=== PATIENT | male | born 1955 | race Caucasian/White ===

== ENCOUNTER 2022-02-05 13:12 | Emergency (ER) | payer BC ==
[2022-02-05] MEDS ORDERED: HYDROCODONE/APAP 10/325 TAB ONE (13:50)
[2022-02-05] MEDS ORDERED: KETOROLAC 30 MG/ML INJ ONE (13:51)
--- NOTE | 2022-02-05 15:17 | RAD REPORT ---
EXAM DESCRIPTION: RAD - Lumbar Spine 3 Views - 02/05/2022 2:49 pm CLINICAL HISTORY: PAIN COMPARISON: Sacrum And Coccyx dated 02/05/2022 FINDINGS: A three-view lumbar spine examination was performed. There is a mild left convex scoliotic curvature present. [place] is at L3. The lowest lumbar level is pa rtially sacralized on the left. There is slight left lateral subluxation of L4. Slight height loss no [place] in the right lateral aspect of L3 due to the concave curvature. There is a very slight anterior s ubluxation of L4 on L5. An acute compression fracture is not suspected. . No pathologic bone changes seen. Endplate spurs are seen from L2-S1. Disc space narrowing is present in the lowest movable disc level of the lumbar spine. Facet joint degenerative changes are present. No pars defects identified. IMPRESSION: Lumbar spine degenerative changes are present as detailed. No acute compression fracture or acute finding seen. Concerns for disc herniation, central canal abnormality or occult bone process can be addressed with follow-up outpatient MRI imaging.
--- NOTE | 2022-02-05 15:18 | RAD REPORT ---
EXAM DESCRIPTION: RAD - Sacrum And Coccyx - 02/05/2022 2:49 pm CLINICAL HISTORY: PAIN COMPARISON: Lumbar Spine 3 Views dated 02/05/2022 FINDINGS: No fracture or acute finding of the sacrum or coccygeal segments. No acute or suspicious S I joint finding. Lowest lumbar level is partially sacralized on the left. Lumbar spine findings are d etailed in separate report. No presacral soft tissue thickening. IMPRESSION: No acute sacrum or coccyx finding.
--- NOTE | 2022-02-05 15:24 | EDPHYS ---
Physician Documentation [facility] Name: Gaurav Correa Age: 67 yrs Sex: Male : 1955 Arrival Date: 02/05/2022 Time: 13:15 Bed 20 Private MD: ED Physician Lawson Baez HPI: 02/05 19:40 This 67 yrs old Male presents to ER via Wheelchair with complaints of Back Pain, Back kb Injury. 19:40 The patient presents with pain that is acute. The symptoms are located in the sacrum kb and L5 and L4 and right low back. Onset: The symptoms/episode began/occurred just prior to arrival. The pain does not radiate. Associated signs and symptoms: The patient has no apparent associated signs or symptoms. The problem was sustained may have twisted when trying to sit on a chair. Modifying factors: The patient symptoms are alleviated by nothing, the patient symptoms are aggravated by any movement. Severity of symptoms: At their worst the symptoms were moderate, in the emergency department the symptoms are unchanged. The patient has not experienced similar symptoms in the past. The patient has not recently seen a physician. Historical: - Allergies: 13:30 No Known Allergies; hb - Immunization history:: Adult Immunizations up to date. - Social history:: Smoking status: Patient denies any tobacco usage or history of. ROS: 19:38 Constitutional: Negative for fever, chills, and weight loss. kb 19:38 Back: Positive for pain at rest, pain with movement, of the right low back. 19:38 All other systems are negative. Exam: 19:38 Constitutional: This is a well developed, well nourished patient who is awake, alert, kb and in no acute distress. Head/Face: Normocephalic, atraumatic. ENT: Moist Mucous membranes Cardiovascular: Regular rate and rhythm with a normal S1 and S2. No gallops, murmurs, or rubs. No pulse deficits. Respiratory: Respirations even and unlabored. No increased work of breathing. Talking in full sentences Skin: Warm, dry with normal turgor. Normal color. MS/ Extremity: Pulses equal, no cyanosis. Neurovascular intact. Full, normal range of motion. Neuro: Awake and alert, GCS 15, oriented to person, place, time, and situation. Moves all extremities. Normal gait. Psych: Awake, alert, with orientation to person, place and time. Behavior, mood, and affect are within normal limits. 19:38 Back: vertebral tenderness, is appreciated at L4, L5 and sacrum. 19:38 Neuro: Exam negative for acute changes. Vital Signs: 13:28 Pulse 72; Resp 20; Temp 98.3; Pulse Ox 97% on R/A; Weight 149.69 kg; Height 6 ft. 1 in. hb (185.42 cm); Pain 9/10; 15:05 BP 144 / 75; Pulse 64; Resp 18; Pulse Ox 98% ; em6 13:28 Body Mass Index 43.54 (149.69 kg, 185.42 cm) hb MDM: 13:34 Patient medically screened. kb 18:43 Data reviewed: vital signs, nurses notes. Data interpreted: Pulse oximetry: on room air kb is 98 %. Interpretation: normal. Counseling: I had a detailed discussion with the patient and/or guardian regarding: the historical points, exam findings, and any diagnostic results supporting the discharge/admit diagnosis, radiology results, the need for outpatient follow up, a family practitioner, to return to the emergency department if symptoms worsen or persist or if there are any questions or concerns that arise at home. ED course: Pt is feeling better after treatment. Educated to follow up with pcp for MRI if pain persists. . 02/05 13:35 Order name: Lumbar Spine (3 Views) XRAY; Complete Time: 15:20 kb 02/05 13:35 Order name: Sacrum And Coccyx XRAY; Complete Time: 15:20 kb Administered Medications: 13:52 Drug: Ketorolac 60 mg Route: IM; Site: left deltoid; em6 14:30 Follow up: Response: No adverse reaction em6 13:52 Drug: [place] (HYDROcodone-acetaminophen) 10 mg-325 mg 1 tabs Route: PO; em6 14:30 Follow up: Response: No adverse reaction; RASS: Alert and Calm (0) em6 Disposition Summary: 02/05/22 15:23 Discharge Ordered Location: Home kb Condition: Stable kb Diagnosis - Low back pain kb Followup: kb - With: Emergency Department - When: As needed - Reason: Worsening of condition Followup: kb - With: Private Physician - When: 2 - 3 days - Reason: Recheck today's complaints, Continuance of care, Re-evaluation by your physician Discharge Instructions: - Discharge Summary Sheet kb - Acute Back Pain, Adult kb - Musculoskeletal Pain kb Forms: - Medication Reconciliation Form kb - Thank You Letter kb - Antibiotic Education kb - Prescription Opioid Use kb Prescriptions: - Cyclobenzaprine 10 mg Oral Tablet - take 1 tablet by ORAL route every 8 hours As needed; 15 tablet; Refills: 0, kb Product Selection Permitted - Diclofenac Sodium 75 mg Oral tablet,delayed release (DR/EC) - take 1 tablet by ORAL route 2 times per day As needed; 30 tablet; Refills: 0, kb Product Selection Permitted Addendum: 02/07/2022 03:44 Co-signature as Attending Physician, Lawson SINGH was immediately available onsite m s3 in the emergency department for consultation in the care of the patient. Signatures: Dispatcher [employer] Maria Esther Chauhan, SWING FRAME GRINDER OPERATOR-C SWING FRAME GRINDER OPERATOR-[place] Roxi Martins, RN Lawson Gray DO DO ms3 Maria Luisa Mi RN RN em6
--- NOTE | 2022-02-05 15:24 | ER ---
Nurse's Notes [facility] Name: Gaurav Correa Age: 67 yrs Sex: Male : 1955 Arrival Date: 02/05/2022 Time: 13:15 Bed 20 Private MD: Diagnosis: Low back pain Presentation: 02/05 13:28 Chief complaint: Severe back pain that began while attempting to sit in chair 1 hour hb ago. Coronavirus screen: At this time, the client does not indicate any symptoms associated with coronavirus-19. Ebola Screen: No symptoms or risks identified at this time. Risk Assessment: Do you want to hurt yourself or someone else? Patient reports no desire to harm self or others. Onset of symptoms was February 05, 2022. 13:28 Method Of Arrival: Wheelchair hb 13:30 Initial Sepsis Screen: Does the patient meet any 2 criteria? No. Patient's initial hb sepsis screen is negative. Does the patient have a suspected source of infection? No. Patient's initial sepsis screen is negative. 13:30 Acuity: JUANITA 3 hb Historical: - Allergies: 13:30 No Known Allergies; hb - Immunization history:: Adult Immunizations up to date. - Social history:: Smoking status: Patient denies any tobacco usage or history of. Screenin:40 Abuse screen: Denies threats or abuse. Nutritional screening: No deficits noted. em6 Tuberculosis screening: No symptoms or risk factors identified. Fall Risk Gait- Weak (10 pts.). Total Membreno Fall Scale indicates No Risk (0-24 pts). Assessment: 13:40 General: Appears distressed, uncomfortable, Behavior is cooperative, restless. Pain: em6 Complains of pain in right low back Pain does not radiate. Pain currently is 5 out of 10 on a pain scale. Quality of pain is described as sharp, stabbing, Pain began 1 hour ago. Is continuous, Alleviated by repositioning. Neuro: Gonzalez Agitation-Sedation Scale (RASS): 0 - Alert and Calm Level of Consciousness is awake, alert, obeys commands, Oriented to person, place, time, situation. Cardiovascular: Patient's skin is warm and dry. Respiratory: Airway is patent Respiratory effort is even, unlabored, Respiratory pattern is regular, symmetrical. GI: No signs and/or symptoms were reported involving the gastrointestinal system. : No signs and/or symptoms were reported regarding the genitourinary system. EENT: No signs and/or symptoms were reported regarding the EENT system. Derm: No signs and/or symptoms reported regarding the dermatologic system. Musculoskeletal: Circulation, motion, and sensation intact. 14:40 Reassessment: Patient appears in no apparent distress at this time. Patient and/or em6 family updated on plan of care and expected duration. Pain level reassessed. Patient is alert, oriented x 3, equal unlabored respirations, skin warm/dry/pink. Pain: Complains of pain in back and right low back Pain currently is 2 out of 10 on a pain scale. Vital Signs: 13:28 Pulse 72; Resp 20; Temp 98.3; Pulse Ox 97% on R/A; Weight 149.69 kg; Height 6 ft. 1 in. hb (185.42 cm); Pain 9/10; 15:05 BP 144 / 75; Pulse 64; Resp 18; Pulse Ox 98% ; em6 13:28 Body Mass Index 43.54 (149.69 kg, 185.42 cm) hb ED Course: 13:15 Patient arrived in ED. am2 13:25 Maria Esther Frost FNP-C is PHCP. kb 13:25 Lawson Baez DO is Attending Physician. kb 13:30 Arm band placed on. hb 13:31 Triage completed. hb 13:39 Graeme Kendall, ROBERTH is Primary Nurse. jd3 13:40 Patient has correct armband on for positive identification. Bed in low position. Call em6 light in reach. Side rails up X2. Pulse ox on. NIBP on. Warm blanket given. 14:51 Lumbar Spine (3 Views) XRAY In Process Unspecified. EDMS 14:51 Sacrum And Coccyx XRAY In Process Unspecified. EDMS 15:40 No provider procedures requiring assistance completed. Assist provider with bone marrow em6 aspiration. Patient did not have IV access during this emergency room visit. Administered Medications: 13:52 Drug: Ketorolac 60 mg Route: IM; Site: left deltoid; em6 14:30 Follow up: Response: No adverse reaction em6 13:52 Drug: [place] (HYDROcodone-acetaminophen) 10 mg-325 mg 1 tabs Route: PO; em6 14:30 Follow up: Response: No adverse reaction; RASS: Alert and Calm (0) em6 Medication: 15:27 VIS not applicable for this client. em6 Outcome: 15:23 Discharge ordered by MD. huitron 15:40 Discharged to home via wheelchair, with family. em6 15:40 Condition: stable 15:40 Discharge instructions given to patient, family, Instructed on discharge instructions, follow up and referral plans. medication usage, Demonstrated understanding of instructions, follow-up care, medications, Prescriptions given X 2. 15:50 Patient left the ED. em6 Signatures: Dispatcher [employer] EDMS Maria Esther Frost, DELIVERY CREW MEMBER-C DELIVERY CREW MEMBER-Ckb Roxi Martins, RN RN Mai Toney Jonathon RN RN Maria Luisa Orozco RN RN em6
[2022-02-07 01:26] VITALS: BP 144/75; O2SAT 98
[2022-02-07 01:43] VITALS: TEMP 98.3
== END 2022-02-05 15:50 | disposition home or self-care (01) ==
LOC: ER 13:12
DX: M54.50 Low back pain, unspecified (principal)
CPT/HCPCS: 72100; 72220; 96372; 99284